=== PATIENT | female | born 1960 | race Caucasian/White ===

== ENCOUNTER 2018-07-02 22:46 | Emergency (ER) | payer MEDICARE, MEDICAID ==
[2018-07-02] MEDS ORDERED: Acetaminophen/oxyCODONE 325-5 MG Tab PO ONE (23:30)
--- NOTE | 2018-07-02 23:32 | EDM.PDOC ---
ED HPI GENERAL MEDICAL PROBLEM - General Chief Complaint: Trauma Stated Complaint: FELL Time Seen by Provider: 07/02/18 22:59 Source of Information: Reports: Patient History Limitations: Reports: No Limitations - History of Present Illness INITIAL COMMENTS - FREE TEXT/NARRATIVE: This patient said she was at [facility] and she tripped over some carpeting. She fell forward she struck her right cheek on the ground also she has her right arm in a sling because of some recent right shoulder replacement and when she fell forward her right forearm was crushed against her sternum she complains of pain to the sternum. She denies any neck pain. She's been rubbing her nose and there is just a very slight nosebleed. right cheek Pain Score (Numeric/FACES): 3 sternal pain Pain Score (Numeric/FACES): 4 right shoulder pain Pain Score (Numeric/FACES): 10 - Related Data Allergies Allergy/AdvReac Type Severity Reaction Status Date / Time adhesive tape Allergy Hives Verified 07/02/18 23:03 cat dander Allergy Sneezing Verified 07/02/18 23:03 cephalexin [From Keflex] Allergy Facial Verified 07/02/18 23:03 Swelling dog dander Allergy Sneezing Verified 07/02/18 23:03 Home Meds: Home Meds Calcium Carbonate [Calcium] 500 mg PO DAILY 07/02/18 [History] Furosemide [Lasix] 20 mg PO DAILY 07/02/18 [History] Past Medical History HEENT History: Reports: Impaired Vision Respiratory History: Reports: COPD, Other (See Below) Gastrointestinal History: Reports: Bowel Obstruction 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: Musculoskeletal History: Reports: Arthritis - Past Surgical History GI Surgical History: Reports: Appendectomy, Cholecystectomy, Hernia Repair/Other , Small Bowel Female Surgical History: Reports: Hysterectomy, Salpingo-Oophorectomy Musculoskeletal Surgical History: Reports: Hip Replacement, Knee Replacement, Shoulder Surgery, Other (See Below) Other Musculoskeletal Surgeries/Procedures:: right shoulder surgery replacement Jun 20 2018 Social & Family History - Tobacco Use Smoking Status *Q: Never Smoker - Caffeine Use Caffeine Use: Reports: Coffee, Soda - Recreational Drug Use Recreational Drug Use: No Review of Systems - Review of Systems Review Of Systems: ROS reveals no pertinent complaints other than HPI. ED EXAM, GENERAL - Physical Exam Exam: See Below Exam Limited By: No Limitations General Appearance: Alert, WD/WN, No Apparent Distress Eye Exam: Bilateral Eye: Normal Inspection Nose: Other (She keeps rubbing her nose with tissue and there is a about 1 or 2 drops of blood on the tissue her nose appears intact.) Head: Other (Facial bones appear intact there is a very tiny little scratch just a few millimeters long over her right malar eminence) Neck: Full Range of Motion Respiratory/Chest: Normal Breath Sounds, Other (Mild sternal tenderness) Cardiovascular: Regular Rate, Rhythm, No Murmur GI/Abdominal: Non-Tender Extremities: Other (The right arm is in a sling however she can start she can extend the arm tender 15 forward and abducted similar amount. Nothing more was attempted.) Neurological: Alert, Oriented, CN II-XII Intact Course - Vital Signs Last Recorded V/S: Last Vital Signs Temp 36.8 C 07/02/18 22:59 Pulse 78 07/02/18 22:59 Resp 16 07/02/18 22:59 BP 157/73 H 07/02/18 22:59 Pulse Ox 98 07/02/18 22:59 - Orders/Labs/Meds Meds: Medications Discontinued Medications Generic Name Dose Route Start Last Admin Trade Name Freq PRN Reason Stop Dose Admin Oxycodone/Acetaminophen 1 tab 07/02/18 23:30 07/02/18 23:35 Percocet 325-5 Mg PO 07/02/18 23:31 1 tab ONETIME ONE Administration Departure - Departure Time of Disposition: 23:30 Disposition: Home, Self-Care 01 Condition: Fair Clinical Impression: Contusion of sternum - Discharge Information Instructions: Contusion, [id number] Referrals: PCP,None [Primary Care Provider] - Forms: ED Department Discharge Additional Instructions: Continue to use your own oxycodone for pain. If you need more this she should contact your Dr. since you have been on this medication for a while and may be at risk for dependence if I prescribe more for you
== END 2018-07-02 23:46 | disposition home or self-care (01) ==
LOC: JP.ED 22:46 → EDBD 22:46 → JP.ED 23:46
DX: S20.219A Contusion of unspecified front wall of thorax, initial encounter (principal); Z88.8 Allergy status to other drugs, medicaments and biological substances; Z91.048 Other nonmedicinal substance allergy status; Z79.899 Other long term (current) drug therapy; J44.9 Chronic obstructive pulmonary disease, unspecified; W18.30XA Fall on same level, unspecified, initial encounter
CPT/HCPCS: 99284; A9270